=== PATIENT | male | born 1960 | race Two or more races ===

== ENCOUNTER 2022-11-10 18:08 | Inpatient (IN) | payer MEDICARE, OTHER ==
[~2022-11-10] VITALS: Ht 188 cm; Wt 99.4 kg
[2022-11-10 18:56] VITALS: PULSE 74; RESP 14; O2SAT 96
[2022-11-10 19:23] LABS: Basophils # (auto) 0.1 10 ^3/uL (0-0.2); Basophils % (auto) 0.8 % (0.0-2.0); Eosinophils # (auto) 0.2 10 ^3/uL (0-0.8); Eosinophils % (auto) 2.5 % (0.0-7.0); Hematocrit 37.3 % (41.0-53.0); Hemoglobin 12.3 g/dL (13.5-17.5); Lymphocytes # (auto) 1.8 10 ^3/uL (0.4-5.4); Monocytes # (auto) 0.5 10 ^3/uL (0-1.3); Monocytes % (auto) 7.3 % (0.0-12.0); Neutrophils # (auto) 4.3 10 ^3/uL (1.6-8.6); Neutrophils % (auto) 62.4 % (37.0-80.0); Red Blood Cells 4.09 10^6/uL (4.5-5.90); Red Cell Distribution Width 13.7 % (11.8-14.3); White Blood Cell 6.8 10^3/uL (4.4-10.8)
[2022-11-10 19:50] VITALS: PULSE 71; RESP 18; O2SAT 94
[2022-11-10 20:05] LABS: INR 0.98 (0.9-1.15); Partial Thromboplastin Time 26.3 SEC (24.5-34.5); Prothrombin Time 10.3 sec (9.3-11.8)
[2022-11-10 20:13] LABS: Calcium 8.5 mg/dL (8.5-10.1); Potassium 5.1 mmol/L (3.5-5.1)
[2022-11-10 20:16] LABS: BUN/Creatinine Ratio 13.1 (10.0-20.0); Bilirubin, Total 0.4 mg/dL (0.2-1.0); Total Protein 6.2 g/dL (6.4-8.2)
[2022-11-10] MEDS ORDERED: MORPHINE SULFATE INJ 2 MG/ml SYRG IV PRN (22:15)
[2022-11-10] MEDS ORDERED: DOCUSATE SOD 100 MG CAP PO PRN (22:15)
[2022-11-10] MEDS ORDERED: DEXTROSE (50%) 50ML SYRG IV PRN (22:15)
[2022-11-10] MEDS ORDERED: hydrALAZINE HCL 20 MG/ML VL IV PRN (22:15)
[2022-11-10] MEDS ORDERED: NITROGLYCERIN 0.4 MG SL TAB SL PRN (22:15)
[2022-11-10] MEDS ORDERED: HYDROcodone-ACET 5/325MG TAB PO PRN (22:15)
[2022-11-10] MEDS ORDERED: ALBUMIN 25% 100 ML IV ONE (22:15)
[2022-11-10] MEDS ORDERED: ONDANSETRON HCL 4 MG/2 ML VIAL IV PRN (22:15)
[2022-11-10] MEDS ORDERED: ACETAMINOPHEN 325 MG TAB PO PRN (22:15)
[2022-11-11] MEDS: SODIUM CHLOR 0.9% PF (SALINE LOCK) 10ML VIAL/SYR IV SCH ×3 (05:32→22:31)
[2022-11-11] MEDS: InsuLIN REG 1unit/0.01ml Soln (100units/ml) SC SCH ×4 (06:24→22:30)
[2022-11-11] MEDS: ACCU-CHEK COMFORT CURVE STRIP VI SCH ×4 (06:24→22:30)
[2022-11-11 06:35] LABS: Basophils # (auto) 0 10 ^3/uL (0-0.2); Basophils % (auto) 0.8 % (0.0-2.0); Eosinophils # (auto) 0.2 10 ^3/uL (0-0.8); Eosinophils % (auto) 2.9 % (0.0-7.0); Hematocrit 34.7 % (41.0-53.0); Hemoglobin 11.6 g/dL (13.5-17.5); Lymphocytes # (auto) 2.2 10 ^3/uL (0.4-5.4); Lymphocytes % (auto) 34.9 % (10.0-50.0); Mean Corpuscular Hemoglobin 30.5 pg (28.0-32.0); Mean Corpuscular Hgb Conc. 33.3 g/dL (32.0-36.0); Mean Corpuscular Volume 91.4 fL (80.0-100.0); Monocytes # (auto) 0.4 10 ^3/uL (0-1.3); Monocytes % (auto) 7.1 % (0.0-12.0); Neutrophils # (auto) 3.4 10 ^3/uL (1.6-8.6); Neutrophils % (auto) 54.3 % (37.0-80.0); Nucleated Red Blood Cells % 0.1 %; Red Cell Distribution Width 13.4 % (11.8-14.3); White Blood Cell 6.2 10^3/uL (4.4-10.8)
[2022-11-11 07:26] LABS: Albumin 3.2 g/dL (3.4-5.0); Bilirubin, Total 0.5 mg/dL (0.2-1.0); Calcium 8.5 mg/dL (8.5-10.1); Total Protein 6.5 g/dL (6.4-8.2)
[2022-11-11 08:00] VITALS: PULSE 62; RESP 15; O2SAT 96
[2022-11-11] MEDS: ASPirin 81 mg TAB PO SCH (09:58)
[2022-11-11] MEDS: FAMOTIDINE (10MG/ML) 2ML VL IV SCH ×2 (09:58→22:34)
[2022-11-11 10:09] LABS: Urine Bacteria NONE SEEN /hpf (None Seen); Urine Blood Negative /uL (Negative); Urine Clarity Clear (Clear); Urine Color Yellow (Yellow); Urine Protein, UAD 2+ (Negative); Urine Specific Gravity 1.014 (1.001-1.035); Urine Urobilinogen Normal (Negative); Urine WBC 2 /hpf (0 - 3); Urine pH 5.5 (5.0-8.0)
[2022-11-11 13:59] LABS: Cholesterol 105 mg/dL (< 200)
[2022-11-11 14:01] LABS: HDL Cholesterol 29 mg/dL (40-59); LDL Cholesterol 53 mg/dL (< 100); Triglycerides 150 mg/dL (< 150)
[2022-11-11] MEDS: GABAPENTIN 300 MG CAP PO SCH ×2 (14:11→22:34)
[2022-11-11 14:13] LABS: Alcohol, Urine < 3.0 mg/dL (0-10); Amphetamine Screen, Urine NEGATIVE (NEGATIVE); Barbiturate Scree,Urine NEGATIVE (NEGATIVE); Benzodiazephine Screen, Urine NEGATIVE (NEGATIVE); Cannabinoid Screen, Urine NEGATIVE (NEGATIVE); Cocaine Screen, Urine NEGATIVE (NEGATIVE); Opiate Scree,Urine NEGATIVE (NEGATIVE); Phencyclidine Screen, Urine NEGATIVE (NEGATIVE)
[2022-11-11 19:30] VITALS: PULSE 80; RESP 12; O2SAT 95
[2022-11-11] MEDS ORDERED: METOPROLOL SUCCINATE XL 50 MG TAB PO SCH (22:00)
[2022-11-11] MEDS: METOPROLOL TARTRATE 25 MG TAB PO SCH (22:34)
[2022-11-11] MEDS: ATORVASTATIN 20 MG TAB PO SCH (22:34)
[2022-11-11] MEDS: IVABRADINE 5 MG TAB PO SCH (22:47)
[2022-11-11] MEDS: RANOLAZINE ER 500 MG TAB PO SCH (22:49)
[2022-11-12] VITALS (11 sets, daily range): BP systolic 113–183; BP diastolic 71–104; PULSE 62–87; RESP 14–20; TEMP 97.6–98.4; O2SAT 90–100
[2022-11-12] MEDS ORDERED: ATOR-47 PO (00:53)
[2022-11-12] MEDS ORDERED: [UNRECOGNIZED DRUG - CODE] PO (00:53)
[2022-11-12] MEDS ORDERED: LOSA100T58 PO (00:53)
[2022-11-12] MEDS ORDERED: PANT40T PO (00:53)
[2022-11-12] MEDS ORDERED: EMPA1TAB3 PO (00:53)
[2022-11-12] MEDS ORDERED: ISOS1TAB28 PO (00:53)
[2022-11-12] MEDS ORDERED: DOCU-94 PO (00:53)
[2022-11-12] MEDS ORDERED: FURO40TA4 PO (00:53)
[2022-11-12] MEDS ORDERED: GABA-1250 PO (00:53)
[2022-11-12] MEDS ORDERED: IVAB1.7T PO (00:53)
[2022-11-12] MEDS ORDERED: SERT-206 PO (00:53)
[2022-11-12] MEDS ORDERED: RANO500T3 PO (00:53)
[2022-11-12] MEDS ORDERED: NITR0.4S29 (00:53)
[2022-11-12] MEDS ORDERED: ASPI-325 PO (00:53)
[2022-11-12] MEDS ORDERED: METO1TAB9 PO (00:53)
[2022-11-12] MEDS ORDERED: SEMA2INJ3 SC (00:56)
[2022-11-12] MEDS: GABAPENTIN 300 MG CAP PO SCH ×3 (06:06→22:19)
[2022-11-12] MEDS: ACCU-CHEK COMFORT CURVE STRIP VI SCH ×4 (06:06→22:20)
[2022-11-12] MEDS: SODIUM CHLOR 0.9% PF (SALINE LOCK) 10ML VIAL/SYR IV SCH ×3 (06:07→22:00)
[2022-11-12] MEDS: InsuLIN REG 1unit/0.01ml Soln (100units/ml) SC SCH ×4 (06:07→22:22)
[2022-11-12] MEDS: IVABRADINE 5 MG TAB PO SCH ×2 (09:52→22:19)
[2022-11-12] MEDS: RANOLAZINE ER 500 MG TAB PO SCH ×2 (09:52→22:19)
[2022-11-12] MEDS: ISOSORBIDE MONONITRATE ER 60 MG TAB PO SCH (09:54)
[2022-11-12] MEDS: SERTRALINE HCL 50 MG TAB PO SCH (09:54)
[2022-11-12] MEDS: ASPirin 81 mg TAB PO SCH (09:55)
[2022-11-12] MEDS: METOPROLOL TARTRATE 25 MG TAB PO SCH ×2 (09:56→22:20)
[2022-11-12] MEDS: FAMOTIDINE (10MG/ML) 2ML VL IV SCH ×2 (09:56→22:19)
[2022-11-12] MEDS: ATORVASTATIN 20 MG TAB PO SCH (22:19)
[2022-11-13 05:00] VITALS: BP 139/69; PULSE 59; RESP 18; TEMP 98; O2SAT 96
[2022-11-13] MEDS: SODIUM CHLOR 0.9% PF (SALINE LOCK) 10ML VIAL/SYR IV SCH (06:26)
[2022-11-13] MEDS: ACCU-CHEK COMFORT CURVE STRIP VI SCH ×2 (06:27→11:34)
[2022-11-13] MEDS: InsuLIN REG 1unit/0.01ml Soln (100units/ml) SC SCH ×2 (06:27→11:41)
[2022-11-13] MEDS: GABAPENTIN 300 MG CAP PO SCH (06:30)
[2022-11-13 08:00] VITALS: BP 135/71; PULSE 62; RESP 18; TEMP 97.9; O2SAT 98
[2022-11-13 08:22] VITALS: PULSE 60
[2022-11-13 08:30] VITALS: BP 135/71; PULSE 78; RESP 16; TEMP 97.8
[2022-11-13] MEDS: SERTRALINE HCL 50 MG TAB PO SCH (09:21)
[2022-11-13] MEDS: IVABRADINE 5 MG TAB PO SCH (09:22)
[2022-11-13] MEDS: RANOLAZINE ER 500 MG TAB PO SCH (09:22)
[2022-11-13] MEDS: ASPirin 81 mg TAB PO SCH (09:22)
[2022-11-13] MEDS: ISOSORBIDE MONONITRATE ER 60 MG TAB PO SCH (09:22)
[2022-11-13] MEDS: FAMOTIDINE (10MG/ML) 2ML VL IV SCH (09:23)
[2022-11-13] MEDS: METOPROLOL TARTRATE 25 MG TAB PO SCH (09:23)
[2022-11-13 10:46] VITALS: BP_SYST 129; BP_SYST 135; BP_DIAS 71; BP_DIAS 80; PULSE 62; PULSE 72; RESP 16; RESP 18; TEMP 97.9; O2SAT 98
[2022-11-13 12:00] VITALS: BP 129/80; PULSE 72; RESP 16; TEMP 97.9; O2SAT 98
== END 2022-11-13 13:20 | disposition home or self-care (01) | DRG 682 ==
LOC: ER 18:08 → EDBD 18:08 → TELE 22:08 → TELE-CENTR 11-11 23:05
PROVIDERS: ADMIT Family Medicine; ATTEND Family Medicine
DX: N17.9 Acute kidney failure, unspecified (principal); I50.33 Acute on chronic diastolic (congestive) heart failure; I13.0 Hypertensive heart and chronic kidney disease with heart failure and stage 1 through stage 4 chronic kidney disease, or unspecified chronic kidney disease; I95.2 Hypotension due to drugs; E11.65 Type 2 diabetes mellitus with hyperglycemia; I25.10 Atherosclerotic heart disease of native coronary artery without angina pectoris; E78.00 Pure hypercholesterolemia, unspecified; E66.9 Obesity, unspecified; J44.9 Chronic obstructive pulmonary disease, unspecified; E11.22 Type 2 diabetes mellitus with diabetic chronic kidney disease; R55 Syncope and collapse; N18.32 Chronic kidney disease, stage 3b; Z95.1 Presence of aortocoronary bypass graft; Z82.49 Family history of ischemic heart disease and other diseases of the circulatory system; Z83.3 Family history of diabetes mellitus; Z88.0 Allergy status to penicillin; Z68.28 Body mass index [BMI] 28.0-28.9, adult
CPT/HCPCS: 36415; 71045; 80053; 80061; 80307; 81001; 82962; 83036; 83880; 84443; 84484; 85025; 85379; 85610; 85730; 93005; 93306; 93886; 96365; 99291; G0378; J1815; J3490; P9047